=== PATIENT | female | born 1995 | race Caucasian/White ===

== ENCOUNTER → 2018-01-12 | Outpatient (CLI) | payer OTHER ==
--- NOTE | 2018-01-12 18:15 | Diagnostic Imaging Report ---
INDICATION: Palpable abnormality in the right breast. COMPARISON: No prior examinations are available for comparison. The current study was also evaluated with a Computer Aided Detection (CAD) system. 3-D tomosynthesis was also performed and reviewed. FINDINGS: The fibroglandular tissue is heterogeneously dense. There is no dominant mass, spiculated lesion, or suspicious calcification is identified. Skin, nipples, and axillae are unremarkable. Ultrasound was also performed. This demonstrated an ill-defined hypoechoic mass with some posterior acoustic shadowing. IMPRESSION: Suspicious. Further evaluation with ultrasound-guided biopsy is recommended to exclude malignancy. ACR BI-RADS Category 4: Suspicious abnormality. Result letter will be mailed to the patient. Note: At least 10% of breast cancer is not imaged by mammography. Dictated by: Dictated on workstation # [id number]
--- NOTE | 2018-01-12 18:19 | Diagnostic Imaging Report ---
INDICATION: Palpable abnormality in the right breast TECHNIQUE: Limited real-time grayscale images were obtained of the right breast in various projections. FINDINGS: At the 1 o'clock position in the right breast, 6 cm from the nipple, there is a somewhat ill-defined hypoechoic density. This appears to be close to the chest wall. There appears to be at least marginal blood flow. No other discrete solid or cystic masses are appreciated. IMPRESSION: Category 4, Suspicious Hypoechoic mass in the 1 o'clock position of the right breast, 6 cm from the nipple. This measures approximately 1 x 1.2 cm. Further evaluation with ultrasound-guided biopsy is recommended to exclude malignancy. ACR BI-RADS Category 4: Suspicious abnormality. Result letter will be mailed to the patient. Note: At least 10% of breast cancer is not imaged by mammography. Dictated by: Dictated on workstation # [id number]
== END ==
LOC: RAD 14:32
PROVIDERS: ATTEND Internal Medicine
DX: N63.12 Unspecified lump in the right breast, upper inner quadrant (principal)
CPT/HCPCS: 76641

== ENCOUNTER → 2018-01-14 | Outpatient (CLI) | payer OTHER ==
[~2018-01-14] VITALS: Ht 166.4 cm; Wt 90.7 kg
[~2018-01-14] MED LIST: LIDOCAINE 1% INJ 20 ML 20 ML VIAL INJ ONE
--- NOTE | 2018-01-14 15:17 | Diagnostic Imaging Report ---
EXAMINATION: Ultrasound guided biopsy of the right breast. INDICATION: Abnormal ultrasound. FINDINGS: The recent right breast ultrasound exam of 01/12/2018 noted an ill-defined hypoechoic area in the 1 o'clock position of the right breast roughly 6 cm from the nipple. This did correspond to the patient's palpable abnormality. Following aseptic preparation of the skin and administration of local anesthesia, five passes were made into the area of concern using an 18 gauge Achieve needle. Following the procedure, a clip was inserted into the biopsy site. The patient tolerated the procedure well and was dismissed in good condition. IMPRESSION: There has been a successful ultrasound-guided biopsy of the area in question in the right breast. The final pathology report is pending. Dictated by: Dictated on workstation # [id number]
--- NOTE | 2018-01-14 18:09 | Diagnostic Imaging Report ---
INDICATION: Right breast biopsy. EXAMINATION: Right breast digital diagnostic mammogram with CAD. The current study was also evaluated with a Computer Aided Detection (CAD) system. FINDINGS: The patient underwent an ultrasound-guided biopsy of the right breast earlier today. On this exam, the stereotactic clip is now evident in the 12 o'clock position of the right breast, approximately 10 cm from the nipple. IMPRESSION: There is a stereotactic clip in the 12 o'clock position of the right breast. A final pathology report is pending. Dictated by: Dictated on workstation # [id number]
== END ==
LOC: RAD 12:04
PROVIDERS: ATTEND Internal Medicine
DX: N60.91 Unspecified benign mammary dysplasia of right breast (principal); R92.2 Inconclusive mammogram
CPT/HCPCS: 19083; 88305